=== PATIENT | female | born 1995 | race Caucasian/White ===

== ENCOUNTER 2017-05-12 23:45 | Emergency (ER) | payer MEDICAID ==
[2017-05-13 02:15] VITALS: BP 110/64
== END 2017-05-13 02:15 | disposition home or self-care (01) ==
LOC: ED 23:45
DX: R07.89 Other chest pain (principal); T40.7X5A Adverse effect of cannabis (derivatives), initial encounter; Y92.89 Other specified places as the place of occurrence of the external cause

== ENCOUNTER 2017-10-11 07:54 | Emergency (ER) | payer MEDICAID ==
[~2017-10-11] VITALS: Ht 165.1 cm; Wt 137.4 kg
[2017-10-11 08:01] VITALS: Ht 165.1 cm; Wt 137.4 kg
[2017-10-11 09:12] LABS: CALCIUM 8.6 mg/dL (8.5-10.1); CARBON DIOXIDE 28.4 mmol/L (21-32); CHLORIDE SERUM 102 mmol/L (98-107); CREATININE SERUM 0.7 mg/dL (0.6-1.0); GFR1 > 60 mL/min; GLUCOSE SERUM 111 mg/dL (74-106); POTASSIUM SERUM 3.4 mmol/L (3.5-5.1); SODIUM SERUM 137 mmol/L (136-145)
[2017-10-11 09:17] LABS: ALBUMIN 3.4 g/dL (3.4-5.0); ALKALINE PHOSPHATASE 85 U/L (46-116); ALT/SGPT 42 U/L (14-59); AST/SGOT 17 U/L (15-37); BILIRUBIN TOTAL 0.2 mg/dL (0.20-1.00); LIPASE 74 IU/L (73-393); TOTAL PROTEIN, SERUM 7.5 g/dL (6.4-8.2)
[2017-10-11 09:20] LABS: AMYLASE 20 U/L (25-115)
[2017-10-11 09:21] LABS: BASOPHIL % 0.3 % (0-2); PLATELET COUNT 290 x10^3mcL (130-400); RED CELL DISTRIBUTION WIDTH 13.9 % (11.5-14.5)
[2017-10-11 10:42] VITALS: BP 140/89
== END 2017-10-11 10:42 | disposition home or self-care (01) ==
LOC: ED 07:54
PROVIDERS: Emergency Medicine
DX: K29.00 Acute gastritis without bleeding (principal); E66.01 Morbid (severe) obesity due to excess calories; Z68.45 Body mass index [BMI] 70 or greater, adult
CPT/HCPCS: 36415; 83880; Q0092

== ENCOUNTER 2017-12-19 02:00 | Emergency (ER) | payer MEDICAID ==
[~2017-12-19] VITALS: Ht 177.8 cm; Wt 136.1 kg
[2017-12-19 02:08] VITALS: Ht 177.8 cm; Wt 136.1 kg
[2017-12-19 03:11] LABS: CALCIUM 9.3 mg/dL (8.5-10.1); CARBON DIOXIDE 24.6 mmol/L (21-32); CHLORIDE SERUM 102 mmol/L (98-107); CREATININE SERUM 0.9 mg/dL (0.6-1.0); GFR1 > 60 mL/min; GLUCOSE SERUM 101 mg/dL (74-106); POTASSIUM SERUM 3.6 mmol/L (3.5-5.1); SODIUM SERUM 137 mmol/L (136-145)
[2017-12-19 03:55] VITALS: BP 113/79
== END 2017-12-19 03:55 | disposition home or self-care (01) ==
LOC: ED 02:00
PROVIDERS: Emergency Medicine
DX: R07.89 Other chest pain (principal); R42 Dizziness and giddiness; R06.00 Dyspnea, unspecified
CPT/HCPCS: 36415; Q0092

== ENCOUNTER 2018-04-04 12:43 | Emergency (ER) | payer OTHER ==
[~2018-04-04] VITALS: Ht 165.1 cm; Wt 134.7 kg
[2018-04-04 12:55] VITALS: BP 139/90; Ht 165.1 cm; Wt 134.7 kg
== END 2018-04-04 14:08 | disposition home or self-care (01) ==
LOC: ED 12:43
DX: S93.402A Sprain of unspecified ligament of left ankle, initial encounter (principal); X58.XXXA Exposure to other specified factors, initial encounter; Y93.89 Activity, other specified; Y92.89 Other specified places as the place of occurrence of the external cause; Y99.8 Other external cause status

== ENCOUNTER 2019-05-10 12:27 | Emergency (ER) | payer SELFPAY ==
[~2019-05-10] VITALS: Ht 165.1 cm; Wt 141.1 kg
[2019-05-10 12:34] VITALS: Ht 165.1 cm; Wt 141.1 kg
[2019-05-10 15:35] VITALS: BP 120/86
== END 2019-05-10 15:15 | disposition home or self-care (01) ==
LOC: ED 12:27
DX: J06.9 Acute upper respiratory infection, unspecified (principal); L50.9 Urticaria, unspecified